=== PATIENT | male | born 1975 | race Caucasian/White ===

== ENCOUNTER 2019-04-26 10:56 | Emergency (ER) | payer BC, SELFPAY ==
[2019-04-26] VITALS (14 sets, daily range): BP systolic 133–185; BP diastolic 92–114; PULSE 72–89; RESP 0–60; TEMP 36.8; O2SAT 94–98
--- NOTE | 2019-04-26 11:08 | DI.CT_ITS ---
SYMPTOM/DIAGNOSIS: HEADACHE, FACIAL NUMBNESS NONCONTRAST HEAD CT: There are no prior comparison exams. No intracranial hemorrhage, mass or infarct is seen. The ventricles are normal in size. There is no evidence of skull fracture. There is no evidence of atrophy or microvascular changes. Small mucous retention cysts ae noted in both maxillary sinuses. The mastoid air cells appear clear. IMPRESSION: Negative head CT.
--- NOTE | 2019-04-26 11:13 | ED.GENADUL_ITS ---
Discharge Plan Disposition Patient Disposition: HOME Condition: Stable Discharge Details Chief Complaint: CVA/TIA Clinical Impression: Essential hypertension, Mckinnon's palsy, Headache, Hypokalemia Primary Care Provider: Rebekah Oreilly ED Provider: Blaze Herrera Home Meds and New Rx's Prescriptions: New prednisone 20 mg tablet 60 mg PO DAILY 7 Days Qty: 21 RF: 0 acyclovir 400 mg tablet 400 mg PO Q4H 7 Days Qty: 42 RF: 0 Continued losartan 100 mg tablet 100 mg PO DAILY Qty: 90 RF: 3 sumatriptan succinate [Imitrex] 100 mg tablet 50 - 100 mg PO DAILY PRN (Reason: migraine disorder) Qty: 30 RF: 6 topiramate 100 mg tablet 100 mg PO BID Qty: 180 RF: 3 Discharge Instructions Instructions: Mckinnon Palsy (ED), Hypokalemia (ED) Additional Instructions: Use artificial tears in the left eye to prevent dryness and wear a protective eye patch when sleeping follow up with your primary care provider in 1-2 weeks if you have new weakness in the arms or legs or vision changes return to the emergency department Medical Decision Making 44 yo male with hx of HTN and migraines, who stopped taking his home BP med a week ago, comes in with left facial numbness for 5 days. He denies any extremity weakness or numbness. Denies vision changes. He has had intermittent headaches but feels they were not severe and mild compared to his migraines he can get and has no headache now. He also states he had anterior chest pain a few days ago that lasted less than an hour, did not radiate and did not cause sob or n/v or diaphoresis. On exam he has left facial droop and can't fully open or close the left eye and can't raise the left eye brow, I feel this is consistent with bells palsy as the rest of his motor and sesation exam is intact and he is ambulating without difficulty. Given his htn now and intermittent headaches will obtain ct to eval for possible ich though unlikely based on exam. Given his chest pain a few days ago will also send a troponin, if negative feel he can f/u with his pcp as his heart score is 2. no hypoxia, tachycaria or evidence of dvt so doubt PE. No tearing back pain to suggest dissection at this time pt's exam remains stable, BP now 130/70. Imaging and labs unremarkable other than mild low K. Will start meds for bells palsy and advised f/u with pcp for his BP and return precautions given Differential Diagnosis mckinnon's palsy, nstemi, ich Medical Records Medical records reviewed: Yes I reviewed the patient's medical records. Imaging Data Radiologic Study: Attestation: I personally reviewed and interpreted this imaging study as follows: Imaging: CT Scan Radiologist's impression: no acute findings per dr. haq Lab Data Lab results reviewed: Yes I reviewed the patient's lab results. ECG Data Attestation: I personally reviewed and interpreted this ECG (s) as follows: Prior ECG tracings: not available for review Interpretation: sinus rhythm, rate of 96, pr 148, no acute st t wave ischemic changes HPI General Mode of arrival: ambulatory . Date/Time Provider Initiated Documentation: 04/26/19 10:58 . Limitations to Documentation: no limitations . Information obtained by: patient . History of Present Illness 44 year old M presents to the emergency department with the chief complaint of left facial numbness, described as moderate, Quality is described as other (tingling), and is localized to the face. Patient reports no radiation. Patient started experiencing this day(s) (5) and it has been constant. No relieving factors improve symptom(s), No exacerbating factors reported . Patient did receive the following treatments prior to arrival, none Related Data Home Medications Medication Instructions Recorded Confirmed losartan 100 mg tablet 100 mg PO DAILY #90 tab-cap 01/04/19 01/04/19 sumatriptan 100 mg tablet 50 - 100 mg PO DAILY PRN #30 tab 01/04/19 01/04/19 topiramate 100 mg tablet 100 mg PO BID #180 tab 01/04/19 01/04/19 acyclovir 400 mg PO Q4H 7 Days #42 tab 04/26/19 prednisone 60 mg PO DAILY 7 Days #21 tab 04/26/19 Previous Rx's Medication Instructions Recorded losartan 100 mg tablet 100 mg PO DAILY #90 tab-cap 01/04/19 sumatriptan 100 mg tablet 50 - 100 mg PO DAILY PRN #30 tab 01/04/19 topiramate 100 mg tablet 100 mg PO BID #180 tab 01/04/19 acyclovir 400 mg PO Q4H 7 Days #42 tab 04/26/19 prednisone 60 mg PO DAILY 7 Days #21 tab 04/26/19 Allergies Allergy/AdvReac Type Severity Reaction Status Date / Time lisinopril Allergy Unknown Verified 04/26/19 10:19 hydrochlorothiazide AdvReac Intermediate LOW K+ Verified 04/26/19 10:19 (2.8) Review of Systems Review of Systems All systems reviewed & are unremarkable except as noted in HPI and below Constitutional Denies chills, Denies fever(s) and Denies weakness Cardiovascular Denies dyspnea Respiratory Denies cough and Denies dyspnea Gastrointestinal Denies abdominal pain, Denies nausea and Denies vomiting Genitourinary Denies dysuria Musculoskeletal Denies joint swelling Integumentary/Breasts Denies rash Neurologic Denies weakness Psychiatric Denies depression PFSH Medical History Needle phobia (Chronic) Non-alcoholic fatty liver disease (Chronic 12/16/13) Family history of ASCVD (Chronic 12/16/13) Essential hypertension (Chronic 03/25/13) Hypokalemia (Resolved 03/15/13) Low HDL (under 40) (Chronic 12/03/15) Microscopic hematuria (Chronic 03/12/13) Migraine (Chronic 12/16/13) Surgical History lasik eye surgery Social History Smoking/Tobacco Use Status: Never Alcohol Intake: never Drug use: Never Substance use type: does not use Household members: spouse and children Housing: house Number of Children: 2 Do you need help understanding health information?: Rarely 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 What is your relationship status?: Panel score (0-1 are the most socially isolated patients): 1 What type of physical activity do you participate in: walking, bicycling and resistance training Duration: 45-60 minutes/day Frequency: 3-4 times per week Seatbelt use: always Helmet use: Yes Do you feel safe at home: Yes Do you feel safe in your relationship?: Yes Exam Const General: no acute distress Orientation: alert HENMT Head: normal to inspection Ears: external ears normal General nose exam: external nose normal Mouth: moist mucous membranes Eyes General: appearance normal, both eyes and all related structures Neck Neck: normal visual inspection Resp Effort & Inspection: normal respiratory effort and able to speak in complete sentences Cardio Rate: regular rate Skin General skin exam: no rashes or lesions noted Neuro General: alert and oriented x3 Extrem General: normal to inspection Psych Mental Status: mental status grossly normal
[2019-04-26 11:23] LABS: Abs Immature Grans 0.02 k/cumm (0.0-0.09); Absolute Basophil Count 0.02 k/cumm (0.0-0.2); Absolute Eosinophil Count 0.13 k/cumm (0.0-0.7); Absolute Lymphocyte Count 2.18 k/cumm (1.2-3.4); Absolute Monocyte Count 0.75 k/cumm (0.11-0.7); Absolute Neutrophil Count 3.82 k/cumm (1.2-6.7); Basophils % 0.3; Eosinophils % 1.9; HCT 48.5 % (40.0-50.0); Immature Grans % 0.3; Lymphocytes % 31.5; Mean Corp. HGB Concentration 35.1 g/dL (32.0-36.0); Mean Corpuscular Hemoglobin 29.5 pg (27.0-33.0); Mean Corpuscular Volume 84.2 fL (80-95); Mean Platelet Volume 10.1 fL (8.0-11.0); Monocytes % 10.8; Neutrophils % 55.2; Platelet Count 239 x1000/uL (130-400); RBC 5.76 m/cumm (4.50-6.00); RBC Distribution Width 13.1 % (11.8-14.1); White Blood Cell Count 6.92 k/cumm (4.4-10.8)
[2019-04-26 11:37] LABS: ALT 25 U/L (12-78); AST 17 U/L (15-37); Albumin 4.1 g/dL (3.4-5.0); Alkaline Phosphatase 77 U/L (46-116); Anion Gap 11.8 mmol/L (3-11); BUN 12 mg/dL (7-18); Bilirubin, Total 0.5 mg/dL (0.2-1.0); CO2 28.2 mmol/L (21.0-32.0); CREATININE 0.96 mg/dL (0.70-1.30); Calcium 8.6 mg/dL (8.5-10.1); Chloride 104 mmol/L (98-107); Glucose 90 mg/dL (70-100); Sodium 144 mmol/L (136-145); Total Protein 7.7 g/dL (6.4-8.2)
[2019-04-26 11:43] LABS: Troponin I < 0.05 ng/mL (0.00-0.06)
== END 2019-04-26 12:10 | disposition home or self-care (01) ==
LOC: ER 11:58
PROVIDERS: Emergency Provider Emergency Medicine; PCP Nurse Practitioner
DX: I10 Essential (primary) hypertension (principal); R51 Headache; G51.0 Bell's palsy; E87.6 Hypokalemia; Z91.14 Patient's other noncompliance with medication regimen
CPT/HCPCS: 36415; 36416; 80053; 82962; 93005; 99285; 70450; 83735; 84484; 85025; 93010; J3490

== ENCOUNTER 2023-01-06 12:59 | Outpatient (CLI) | payer BC, SELFPAY ==
[2023-01-06 08:02] LABS: ALT 24 U/L (16-63); AST 17 U/L (15-37); Albumin 4.1 g/dL (3.4-5.0); Alkaline Phosphatase 80 U/L (46-116); Anion Gap 7.1 mmol/L (3-11); BUN 12 mg/dL (7-18); Bilirubin, Total 0.8 mg/dL (0.2-1.0); CO2 31.9 mmol/L (21.0-32.0); Calcium 8.8 mg/dL (8.5-10.1); Calculated LDL 95 mg/dL (<100); Chloride 106 mmol/L (98-107); Cholesterol 152 mg/dL (<200); Estimated GFR 94.59 (mL/min/1.73m2); Glucose 101 mg/dL (74-106); HDL Cholesterol 35 mg/dL (40-60); Potassium 3.2 mmol/L (3.5-5.1); Sodium 145 mmol/L (136-145); Total Protein 7.3 g/dL (6.4-8.2); Triglyceride 112 mg/dL (<150)
--- OUTSIDE RECORDS SUMMARY | 2023-01-06 13:14 | XMS_ITS ---
Author Name Laina Gomez Address [address], [place] [id number] Organization [facility] Address [address], [place] [id number] Care Team Providers Care Buggyman Name Role Phone Laina Gomez Unavailable [phone] PROBLEMS Unknown Problems ALLERGIES No Known Allergies ENCOUNTERS Encounter Location Date Diagnosis [facility] [address] [id number] Jun, Acute bilateral low back pain without sciatica M54.50 and Spasm of back muscles M62.830 [facility] [address] [id number] Jun, Encounter for screening laboratory testing for COVID-19 virus Z20.828 [facility] [address] [id number] Sep, Intertrigo L30.4 [facility] [address] [id number] Aug, Intertrigo L30.4 IMMUNIZATIONS No Known Immunizations SOCIAL HISTORY Never Assessed REASON FOR REFERRAL FUNCTIONAL STATUS PLAN OF CARE Activity Details VITAL SIGNS Height 70 in 2022-06-08 Height 70 in 2019-09-03 Weight 222 lbs 2022-06-08 Weight 220 lbs 2019-09-03 Temperature 97.9 degrees Fahrenheit Temperature 99.8 degrees Fahrenheit Heart Rate 70 /min 2022-06-08 Heart Rate 110 /min 2019-09-03 Oximetry 99 2022-06-08 Respiratory Rate 16 /min 2019-09-03 BMI 31.85 kg/m2 2022-06-08 BMI 31.56 kg/m2 2019-09-03 Blood pressure systolic 153 mm Hg Blood pressure diastolic 72 mm Hg 2022-06 MEDICATIONS Medication Instructions Dosage Frequency Start Date End Date Duration Status SUMAtriptan Succinate Not-Takin g Magnesium Active Tylenol Extra Strength 500 MG Orally every 6 hrs 1 tablet as needed 6h Active amLODIPine Besylate Active Aleve 220 MG Orally every 12 hrs 1 tablet with food or milk as needed 12h Active Fluconazole 150 MG Orally once a week for 2 weeks 1 tablet Aug, 2 week Not-Takin g PROCEDURES Procedure Date Ordered Result Body Site [facility] COLLECTION FOR SARS COV A 2020 [facility] - COVID 19 TESTING Jun 16, 2021 RESULTS Name Result Date Reference Range COVID 19 [facility] PCR (Cepheid) AUTHORIZED ONLY 2021-06-16 REASON FOR VISIT back pain, pt reports he went to put down visor on his helmet while riding and felt immediate bilateral lower back pain, pt reports he was sore a few days prior, reports pain in back when he breathes, saw chiropractor after the pain started today - put medicated patch on back, PCR, travel, OCC dot ppx w/cdl, med refill, [facility]- rash on sides of legs and under arms Insurance Providers Health Insurance Type Health Plan Insurance Address Health Plan Insurance Phone Health Plan Insurance Name Health Plan Coverage Dates Member ID Patient Relationship to Subscriber Patient Address Patient Phone Patient Name Patient Date of Subscriber ID Subscriber Name Subscriber Date of Group No [place] [address] [place] [address] [place] self Clem Scotty [id number]
[2023-01-07 11:17] LABS: HIV-1/2 Ag & Ab Screen Negative (Negative)
[2023-01-09 10:59] LABS: Hepatitis A Antibody IgM Negative (Negative); Hepatitis B Core Antibody Negative (Negative); Hepatitis B surface Ag Negative (Negative); Hepatitis C Ab w Rflx HCV PCR Negative (Negative)
== END 2023-01-06 13:00 | disposition home or self-care (01) ==
LOC: LBO 13:12
PROVIDERS: PCP Nurse Practitioner Adult Health; Visit Provider Nurse Practitioner Adult Health
DX: I10 Essential (primary) hypertension (principal); E78.6 Lipoprotein deficiency; K76.0 Fatty (change of) liver, not elsewhere classified; Z13.1 Encounter for screening for diabetes mellitus; Z11.4 Encounter for screening for human immunodeficiency virus [HIV]; Z11.59 Encounter for screening for other viral diseases; Z82.49 Family history of ischemic heart disease and other diseases of the circulatory system
CPT/HCPCS: 36415; 80053; 80061; 86704; 86709; 86803; 87340; 87389

== ENCOUNTER 2023-03-06 11:13 | Outpatient (REF) | payer BC, SELFPAY ==
[2023-03-06 18:57] LABS: Hemoglobin A1C 4.8 % (<5.7)
[2023-03-07 02:54] LABS: PSA, Screening 0.3 ng/mL (<=2.5)
== END 2023-03-06 11:14 | disposition home or self-care (01) ==
LOC: LBN 11:13
PROVIDERS: PCP Nurse Practitioner Adult Health; Visit Provider Nurse Practitioner Adult Health
DX: R73.01 Impaired fasting glucose (principal); R35.1 Nocturia; R39.89 Other symptoms and signs involving the genitourinary system; Z12.5 Encounter for screening for malignant neoplasm of prostate
CPT/HCPCS: 84153; 83036; 87086